=== PATIENT | female | born 1975 | race Caucasian/White ===

== ENCOUNTER → 2021-12-16 | Outpatient (CLI) | payer OTHER | LOC: LAB 07:32 → PLD 07:32 → LAB SHORT 07:32 | DX: D10.39 Benign neoplasm of other parts of mouth (principal) | CPT/HCPCS: 88305 ==

== ENCOUNTER 2022-08-01 12:02 | Day surgery (SDC) | payer OTHER ==
[~2022-08-01] VITALS: Ht 167.6 cm; Wt 87.9 kg
[2022-08-01] MEDS ORDERED: IBUP200 PO (12:42)
[2022-08-01] MEDS ORDERED: OMEP20ER PO (12:42)
[2022-08-01] MEDS ORDERED: Acetaminophen325 M1 PO (12:43)
[2022-08-01 12:58] VITALS: BP 91/77
--- NOTE | 2022-08-01 13:45 | NUR ---
08/01/22 Mrei Bello HISTORY, CHART, MEDICATIONS AND ALLERGIES REVIEWED BEFORE START OF PROCEDURE. PATIENT CONFIRMS NPO STATUS AND AGREES WITH SCHEDULED PROCEDURE. 3-LEAD EKG REVIEWED WITH PHYSICIAN PRIOR TO START OF PROCEDURE. MONITOR INTACT WITH CONTINUOUS PULSE OXIMETRY,CAPNOGRAPHY, 3-LEAD EKG, INTERMITTENT BP. SUPPLEMENTAL O2 TO BE TITRATED THROUGHOUT PROCEDURE TO MAINTAIN O2 SATURATION ABOVE 90%. PATIENT DETERMINED TO BE ASA APPROPRIATE FOR PROPOFOL SEDATION PRIOR TO START OF PROCEDURE BY .
[2022-08-01 13:50] VITALS: BP 115/72
[2022-08-01 14:16] VITALS: BP 112/74
--- NOTE | 2022-08-01 14:28 | NUR ---
DISCHARGE SUMMARY \ PT A&OX4, VSS/RA, GEORGE PO H20, IV DC'D, DENIES PAIN/NEED TO VOID, DC INS PROVIDED, PT REP UNDERSTANDING THOSE INSTRUCTIONS. LEFT VIA WC WITH RN, TO GO HOME WITH /COLLECTIONS REPRESENTATIVE, WITH ALL PERSONAL POSSESSIONS INCLUDING DC PACKET.
== END 2022-08-01 14:28 | disposition home or self-care (01) ==
LOC: ORSCMMR 12:02 → ORD 13:30 → ORSCMMR 13:30 → ORSCSDS 13:45 → ORSCMMR 14:28
PROVIDERS: Student in an Organized Health Care Education/Training Program
PROC: 0DB58ZX Excision of Esophagus, Via Natural or Artificial Opening Endoscopic, Diagnostic (ICD-10-PCS; principal; 2022-08-01 13:15)
DX: K21.9 Gastro-esophageal reflux disease without esophagitis (principal); D13.0 Benign neoplasm of esophagus; Z86.16 Personal history of COVID-19; R05.9 Cough, unspecified; Z79.899 Other long term (current) drug therapy
CPT/HCPCS: 88305; J2250; J2405; J2704; J7120

== ENCOUNTER 2023-12-16 09:55 | Day surgery (SDC) | payer OTHER ==
[~2023-12-16] VITALS: Ht 167.6 cm; Wt 80.7 kg
[~2023-12-16 09:55] MED LIST: Acetaminophen325 M1 PO; IBUP200 PO; Lactated Ringer's 1,000 ML IV ONE; OMEP20ER PO; propofoL 50 ML IV ONE
[2023-12-16] MEDS ORDERED: Lactated Ringer's 1,000 ML IV ONE (11:17)
[2023-12-16] MEDS ORDERED: propofoL 50 ML IV ONE (11:52)
[2023-12-16 12:57] VITALS: BP 122/80
== END 2023-12-16 12:50 | disposition home or self-care (01) ==
LOC: ORSCSDS 09:55
PROVIDERS: Internal Medicine Gastroenterology
PROC: 0DBM8ZX Excision of Descending Colon, Via Natural or Artificial Opening Endoscopic, Diagnostic (ICD-10-PCS; principal; 2023-12-16 11:30)
PROC: 0DBL8ZX Excision of Transverse Colon, Via Natural or Artificial Opening Endoscopic, Diagnostic (ICD-10-PCS; principal; 2023-12-16 11:30)
PROC: 0DBN8ZX Excision of Sigmoid Colon, Via Natural or Artificial Opening Endoscopic, Diagnostic (ICD-10-PCS; principal; 2023-12-16 11:30)
PROC: 0DJ08ZZ Inspection of Upper Intestinal Tract, Via Natural or Artificial Opening Endoscopic (ICD-10-PCS; principal; 2023-12-16 11:30)
PROC: 0DBK8ZX Excision of Ascending Colon, Via Natural or Artificial Opening Endoscopic, Diagnostic (ICD-10-PCS; principal; 2023-12-16 11:30)
DX: Z12.11 Encounter for screening for malignant neoplasm of colon (principal); K21.9 Gastro-esophageal reflux disease without esophagitis; D12.2 Benign neoplasm of ascending colon; D12.3 Benign neoplasm of transverse colon; K51.40 Inflammatory polyps of colon without complications; K63.5 Polyp of colon; K64.8 Other hemorrhoids; K64.4 Residual hemorrhoidal skin tags; Z79.899 Other long term (current) drug therapy
CPT/HCPCS: 88305; J2704; J7120